=== PATIENT | female | born 1935 | race Caucasian/White ===

== ENCOUNTER 2024-02-04 12:20 | Emergency (ER) | payer MEDICARE, SELFPAY ==
--- NOTE | 2024-02-04 12:58 | CRLHL7_ITS ---
For Patients: As a result of the Cures Act, medical imaging exams and procedure reports are released immediately into your electronic medical record. You may view this report before your referring provider. If you have questions, please contact your health care provider. Indication: Fall Technique: Right elbow 3 views Comparison: None Findings/Impression: No acute fracture or dislocation. No significant elbow joint effusion. No localized soft tissue swelling. Vascular calcification is present. Dictated by Beti Burr MD @ 02/04/2024 1:27:17 PM (Electronically Signed)
[2024-02-04 13:02] VITALS: BP 110/52; PULSE 63; RESP 18; TEMP 36.4; O2SAT 97; BMI 30.1
--- NOTE | 2024-02-04 13:30 | CRLHL7_ITS ---
For Patients: As a result of the Cures Act, medical imaging exams and procedure reports are released immediately into your electronic medical record. You may view this report before your referring provider. If you have questions, please contact your health care provider. Indication: Fall Technique: Right humerus 2 views. Comparison: None. Findings: No acute fracture or dislocation. No suspicious bony lesion. No localized soft tissue swelling. Impression: No acute findings. Dictated by Beti Burr MD @ 02/04/2024 2:10:06 PM (Electronically Signed)
--- NOTE | 2024-02-04 13:33 | ED.GENADULT ---
HPI - General Adult General Chief complaint: Fall/Minor Trauma Stated complaint: Arm pain/weakness from fall Time Seen by Provider: 02/04/24 13:09 Source: patient and family Mode of arrival: ambulatory Limitations: no limitations History of Present Illness HPI narrative: 88-year-old female presenting today with arm pain. Patient states that yesterday she was at home transferring the to the toilet when she lost her footing and fell onto her right side. She is complaining of pain in the upper right arm. Denies any other injury. Denies hitting her head or losing consciousness. Patient does live in assisted living and is anticoagulated. Related Data Allergies Allergy/AdvReac Type Severity Reaction Status Date / Time vancomycin Allergy Intermediate Hives Verified 02/04/24 13:02 Review of Systems Status of ROS: Reports: 10 or more systems reviewed and unremarkable except as noted in History and below Exam Narrative: Exam Narrative: Well-nourished well-developed patient in no acute distress. Alert and oriented. Answers questions appropriately. Mood and affect are appropriate. Thoughts are goal oriented and rational. No tangential or magical thinking noted. Patient speaks in full sentences without needing to catch her breath. HEENT: Normocephalic atraumatic. Pupils are equally round reactive to light. Extraocular muscles are intact. Conjunctivae are moist without any icterus noted. Moist mucous membranes. No trauma noted to the inside of the mouth. No pain on palpation of cervical spine. Full range of motion with flexion, extension, side bending and rotation without pain. Cardiovascular: Heart is regular rate and rhythm. Lungs: Clear to auscultation bilaterally. Extremities: Patient has supra special skin avulsion of the left forearm around the lateral elbow area. She has no tenderness to palpation of the area. On the right she has tenderness to palpation of the mid humerus. She has no pain with flexion at the elbow. She has no pain with palpation of the olecranon, lateral or medial epicondyles. She has no pain in the forearm, wrist or hand. She has no pain at the shoulder. She has good range of motion at the shoulder with a out significant discomfort. There is no obvious swelling or bruising noted of the upper arm. Const: Vital Signs, click to edit/add: Vital Signs - 24 hr 02/04/24 13:02 Temperature 97.6 F Pulse Rate [Pulse Oximeter] 63 Respiratory Rate 18 Blood Pressure [Le ft Upper Arm] 110/52 L Pulse Oximetry 97 Oxygen Delivery Me thod Room Air Course Course ED Course: An x-ray of the elbow was performed before I saw the patient and this was unremarkable. We then added a humeral x-ray: Which was read by me, no acute findings. Vital Signs Vital signs: Initial Vital Signs Temperature 97.6 F 02/04/24 13:02 Temperature Source Temporal Artery Scan 02/04/24 13:02 Pulse Rate 63 02/04/24 13:02 Respiratory Rate 18 02/04/24 13:02 Blood Pressure 110/52 L 02/04/24 13:02 Blood Pressure Mean 71 02/04/24 13:02 Pulse Oximetry 97 02/04/24 13:02 Oxygen Delivery Method Room Air 02/04/24 13:02 Vital Signs Temperature 97.6 F 02/04/24 13:02 Pulse Rate 63 02/04/24 13:02 Respiratory Rate 18 02/04/24 13:02 Blood Pressure 110/52 L 02/04/24 13:02 Pulse Oximetry 97 02/04/24 13:02 Oxygen Delivery Method Room Air 02/04/24 13:02 Temperature 97.6 F 02/04/24 13:02 Pulse Rate 63 02/04/24 13:02 Respiratory Rate 18 02/04/24 13:02 Blood Pressure 110/52 L 02/04/24 13:02 Pulse Oximetry 97 02/04/24 13:02 Oxygen Delivery Method Room Air 02/04/24 13:02 Medical Decision Making MDM Narrative Medical decision making narrative: 88-year-old female status post fall, traumatic injury to the right upper extremity without evidence of fracture. We discussed symptomatic treatment and reasons for follow-up. Imaging Data humerus x-ray: Attestation: I have reviewed the pertinent imaging results. Radiologist's impression: Fall Technique: Right humerus 2 views. Comparison: None. Findings: No acute fracture or dislocation. No suspicious bony lesion. No localized soft tissue swelling. Impression: No acute findings. Discharge Plan Discharge Clinical Impression: Fall, Arm contusion Patient Disposition: Home, Self-Care Condition: Stable Instructions: Contusion in Adults (ED) Follow Up/Referrals: King Gonzalez MD [Primary Care Provider] - Stand Alone Forms: [facility] Info Instructions
== END 2024-02-04 14:36 | disposition home or self-care (01) ==
PROVIDERS: Emergency Provider Family Medicine; PCP Family Medicine
DX: S40.021A Contusion of right upper arm, initial encounter (principal); W18.12XA Fall from or off toilet with subsequent striking against object, initial encounter
CPT/HCPCS: 73060; 73080; 99283; 99284